=== PATIENT | male | born 1960 | race Caucasian/White ===

== ENCOUNTER 2017-04-16 22:41 | Emergency (ER) | payer MEDICAID ==
--- NOTE | 2017-04-16 23:39 | EDM.PDOC ---
ED HPI GENERAL MEDICAL PROBLEM - General Chief Complaint: Genitourinary Problem Stated Complaint: post op urinary retention Time Seen by Provider: 04/16/17 23:36 Source of Information: Reports: Patient History Limitations: Reports: No Limitations - History of Present Illness INITIAL COMMENTS - FREE TEXT/NARRATIVE: Pt. states that he had a LINX surgical procedure for hital hernia today at [facility] in [place], performed by Dr. Babar Diop. Pt. states that postoperatively he was unable to urinate and subsequently required catheterization to empty his bladder. Pt. states that there was difficulty placing the catheter, and a coude tipped catheter had to be utilized. Pt. states that this was performed at approx. 1700 this afternoon. He states since being home, he has been unable to void. He states that he has had problems with urinary retention in the past, and was previously on a daily medication for BPH. It is unknown if it was an alpha stefania or 5 alpha reductase inhibitor, but he states that the medication was not helpful and he subsequently stopped taking it. He states that since being home, he has been unable to void again. He has not been experiencing any fever or chills. His only complaint is that of lower abdominal pressure consistent with full bladder. Onset: Today Onset Date: 04/17/17 Onset Time: 00:03 - Related Data Allergies Allergy/AdvReac Type Severity Reaction Status Date / Time amoxicillin [From Augmentin] Allergy Other Verified 04/16/17 22:51 clavulanic acid Allergy Other Verified 04/16/17 22:51 [From Augmentin] ED ROS GENERAL - Review of Systems Review Of Systems: See Below Constitutional: Reports: No Symptoms HEENT: Reports: No Symptoms Respiratory: Reports: No Symptoms Cardiovascular: Reports: No Symptoms Endocrine: Reports: No Symptoms GI/Abdominal: Reports: No Symptoms : Reports: Urinary Retention Musculoskeletal: Reports: No Symptoms Skin: Reports: No Symptoms Neurological: Reports: No Symptoms Psychiatric: Reports: No Symptoms Hematologic/Lymphatic: Reports: No Symptoms Immunologic: Reports: No Symptoms ED EXAM, RENAL/ - Physical Exam Exam: See Below Exam Limited By: No Limitations General Appearance: Alert, WD/WN, No Apparent Distress Respiratory/Chest: No Respiratory Distress, Lungs Clear, Normal Breath Sounds, No Accessory Muscle Use, Chest Non-Tender Cardiovascular: Normal Peripheral Pulses, Regular Rate, Rhythm, No Edema, No Gallop, No JVD, No Murmur, No Rub GI/Abdominal: Normal Bowel Sounds, Soft, Non-Tender, No Organomegaly, No Distention, No Abnormal Bruit, No Mass, Pelvis Stable (Male) Exam: No Hernia, Normal Inspection, Circumcised, Other (difficulty passing catheter) Rectal (Males) Exam: BPH Back Exam: Normal Inspection, Full Range of Motion Extremities: Normal Inspection, Normal Range of Motion, Non-Tender, No Pedal Edema, Normal Capillary Refill Neurological: Alert, Oriented, CN II-XII Intact, Normal Cognition, Normal Gait, Normal Reflexes, No Motor/Sensory Deficits ED PROCEDURES - Additional/Other Procedure(s) Procedure(s) (Free Text): 16 fr. coude tipped catheter was placed with mild difficulty. Pt. had been bladder scanned for 565 ml of urine. Approx. 450ml was drained from his bladder. Pt. tolerated this well. leg bag was placed after initial drainage. Course - Orders/Labs/Meds Orders: Active Orders 24 hr Category Date Time Status Bladder Scan [RC] ONETIME Care 04/16/17 22:51 Active Departure - Departure Time of Disposition: 11:00 Disposition: Home, Self-Care 01 Clinical Impression: Urinary retention - Discharge Information Instructions: Acute Urinary Retention, Male, [id number] Referrals: Xin Irizarry MACHINE II CUTTER [Primary Care Provider] - Forms: ED Department Discharge Additional Instructions: Return to ER on Thursday to have catheter removed in ER. - My Orders Last 24 Hours: My Active Orders 04/16/17 22:51 Bladder Scan [RC] ONETIME - Assessment/Plan Last 24 Hours: My Active Orders 04/16/17 22:51 Bladder Scan [RC] ONETIME Assessment:: Acute on chronic urinary retention Plan: Return to ER on Thursday to have catheter removed. Keep collection bag and tubing below level of bladder so that urine doesn't return into bladder.
== END 2017-04-16 23:11 | disposition home or self-care (01) ==
LOC: VM.ED 22:41
DX: R33.9 Retention of urine, unspecified (principal); Z88.1 Allergy status to other antibiotic agents
CPT/HCPCS: 51702; 51798; 99284

== ENCOUNTER 2017-04-17 10:46 | Emergency (ER) | payer MEDICAID ==
[2017-04-17] MEDS ORDERED: Tamsulosin 0.4 MG Cap.ER PO ONE (11:35)
--- NOTE | 2017-04-18 06:07 | EDM.PDOC ---
ED HPI GENERAL MEDICAL PROBLEM - General Chief Complaint: Genitourinary Problem Stated Complaint: CATH TROUBLES Time Seen by Provider: 04/17/17 10:46 Source of Information: Reports: Patient History Limitations: Reports: No Limitations - History of Present Illness INITIAL COMMENTS - FREE TEXT/NARRATIVE: Pt. presents to ER with complaints of leaking from his ortiz catheter. Pt. was seen in the ER the previous night with post op urinary retention. Coude tip catheter was placed and a leg bag was utilized. Pt. noticed that the catheter wasn't draining and and it appeared that there was saline leaking for the area where water was injected into the catheter. Pt. presented to ER for evaluation. Onset: Today Treatments PREVENTATIVE MAINTENANCE TECHNICIAN: Reports: Urinary Catheter in Place - Related Data Allergies Allergy/AdvReac Type Severity Reaction Status Date / Time amoxicillin [From Augmentin] Allergy Other Verified 04/17/17 11:17 clavulanic acid Allergy Other Verified 04/17/17 11:17 [From Augmentin] Home Meds: Home Meds Acetaminophen/oxyCODONE [Percocet 325-5 MG] 1 - 2 tab PO Q4H PRN 04/17/17 [ History] Albuterol [Ventolin HFA] 2 puff .XX BID 04/17/17 [History] Albuterol/Ipratropium [DuoNeb 3.0-0.5 MG/3 ML] 1 dose .XX BID 04/17/17 [History] Ascorbate Calcium [Vitamin C] 500 mg PO DAILY 04/17/17 [History] Aspirin [Halfprin] 81 mg PO DAILY 04/17/17 [History] Calcium Carbonate [Tums] 500 mg PO TID 04/17/17 [History] Fluticasone/Salmeterol [Advair 100-50] 1 puff INH BID 04/17/17 [History] Ibuprofen 200 - 600 mg PO Q4H PRN 04/17/17 [History] Metoprolol Tartrate [Lopressor] 50 mg PO BID 04/17/17 [History] Multivitamin [Multivitamins] 1 each PO DAILY 04/17/17 [History] Pantoprazole [ProTONIX] 40 mg PO DAILY 04/17/17 [History] Past Medical History Cardiovascular History: Reports: Hypertension Respiratory History: Reports: Asthma Gastrointestinal History: Reports: GERD, Hiatal Hernia Genitourinary History: Reports: Prostate Disorder Oncologic (Cancer) History: Reports: Lung Social & Family History - Tobacco Use Smoking Status *Q: Unknown Ever Smoked ED ROS GENERAL - Review of Systems Review Of Systems: See Below : Reports: Urinary Retention, Other (ortiz catheter in place) ED EXAM, RENAL/ - Physical Exam Exam: See Below Exam Limited By: No Limitations General Appearance: Alert, WD/WN, No Apparent Distress (Male) Exam: No Hernia, Normal Inspection, Other (small hole noted in injection port of catheter. No saline in catheter. Catheter was subsequently removed.) Course - Vital Signs Last Recorded V/S: Last Vital Signs Temp 36.2 C 04/17/17 11:10 Pulse 69 04/17/17 11:10 Resp 18 04/17/17 11:10 BP 146/68 H 04/17/17 19:20 Pulse Ox 97 04/17/17 11:10 - Orders/Labs/Meds Orders: Active Orders 24 hr Category Date Time Status Remove Ortiz Catheter [Urinary Catheter Removal] [RC] Care 04/17/17 11:36 Active Per Unit Routine Meds: Medications Discontinued Medications Generic Name Dose Route Start Last Admin Trade Name Freq PRN Reason Stop Dose Admin Tamsulosin HCl 0.4 mg 04/17/17 11:35 04/17/17 11:46 Flomax PO 04/17/17 11:36 0.4 mg ONETIME ONE Administration Departure - Departure Time of Disposition: 11:48 Disposition: Home, Self-Care 01 Clinical Impression: Urinary retention - Discharge Information Referrals: Xin Irizarry NP [Primary Care Provider] - Forms: ED Department Discharge Additional Instructions: Return to the ER if you are unable to void. Start flomax 0.4mg once daily for urinary retention. Follow-up in clinic in 7-10 days for recheck. - My Orders Last 24 Hours: My Active Orders 04/17/17 11:36 Remove Ortiz Catheter [Urinary Catheter Removal] [RC] Per Unit Routine - Assessment/Plan Last 24 Hours: My Active Orders 04/17/17 11:36 Remove Ortiz Catheter [Urinary Catheter Removal] [RC] Per Unit Routine
== END 2017-04-17 11:48 | disposition home or self-care (01) ==
LOC: VM.ED 10:46
DX: R33.8 Other retention of urine (principal); T83.031A Leakage of indwelling urethral catheter, initial encounter; I10 Essential (primary) hypertension; J45.909 Unspecified asthma, uncomplicated; Z88.1 Allergy status to other antibiotic agents; Z79.82 Long term (current) use of aspirin; Z79.899 Other long term (current) drug therapy
CPT/HCPCS: 99283; A9270

== ENCOUNTER 2017-04-17 18:57 | Emergency (ER) | payer MEDICAID ==
[2017-04-17] MEDS ORDERED: Lidocaine 2% Jelly 10 ML Urojet MUCMEM ONE (18:59)
--- NOTE | 2017-04-17 20:25 | EDM.PDOC ---
ED HPI GENERAL MEDICAL PROBLEM - General Chief Complaint: Genitourinary Problem Time Seen by Provider: 04/17/17 18:57 Source of Information: Reports: Patient History Limitations: Reports: No Limitations - History of Present Illness INITIAL COMMENTS - FREE TEXT/NARRATIVE: Pt. presents to the ER with urinary retention. He was in ER earlier today with leaking ortiz catheter. This was removed and pt. did not want a replacement at that time to see if he could urinate which he was unable to do. He denies any fever or chills. No weakness or flank pain. No chest pain or shortness of breath. Onset: Today Groin Pain Score (Numeric/FACES): 7 - Related Data Allergies Allergy/AdvReac Type Severity Reaction Status Date / Time amoxicillin [From Augmentin] Allergy Other Verified 04/17/17 11:17 clavulanic acid Allergy Other Verified 04/17/17 11:17 [From Augmentin] Home Meds: Home Meds Acetaminophen/oxyCODONE [Percocet 325-5 MG] 1 - 2 tab PO Q4H PRN 04/17/17 [ History] Albuterol [Ventolin HFA] 2 puff .XX BID 04/17/17 [History] Albuterol/Ipratropium [DuoNeb 3.0-0.5 MG/3 ML] 1 dose .XX BID 04/17/17 [History] Ascorbate Calcium [Vitamin C] 500 mg PO DAILY 04/17/17 [History] Aspirin [Halfprin] 81 mg PO DAILY 04/17/17 [History] Calcium Carbonate [Tums] 500 mg PO TID 04/17/17 [History] Fluticasone/Salmeterol [Advair 100-50] 1 puff INH BID 04/17/17 [History] Ibuprofen 200 - 600 mg PO Q4H PRN 04/17/17 [History] Metoprolol Tartrate [Lopressor] 50 mg PO BID 04/17/17 [History] Multivitamin [Multivitamins] 1 each PO DAILY 04/17/17 [History] Pantoprazole [ProTONIX] 40 mg PO DAILY 04/17/17 [History] Past Medical History Cardiovascular History: Reports: Hypertension Respiratory History: Reports: Asthma Gastrointestinal History: Reports: GERD, Hiatal Hernia Genitourinary History: Reports: Prostate Disorder Oncologic (Cancer) History: Reports: Lung Social & Family History - Tobacco Use Smoking Status *Q: Unknown Ever Smoked ED ROS GENERAL - Review of Systems Review Of Systems: See Below Constitutional: Reports: No Symptoms Respiratory: Reports: No Symptoms Cardiovascular: Reports: No Symptoms Endocrine: Reports: No Symptoms GI/Abdominal: Reports: No Symptoms : Reports: Urinary Retention Musculoskeletal: Reports: No Symptoms Skin: Reports: No Symptoms ED EXAM, RENAL/ - Physical Exam Exam: See Below Exam Limited By: No Limitations General Appearance: Alert, WD/WN, No Apparent Distress Respiratory/Chest: No Respiratory Distress, Lungs Clear, Normal Breath Sounds, No Accessory Muscle Use, Chest Non-Tender Cardiovascular: Normal Peripheral Pulses, Regular Rate, Rhythm, No Edema, No Gallop, No JVD, No Murmur, No Rub GI/Abdominal: Normal Bowel Sounds, Soft, Non-Tender, No Organomegaly, No Distention, No Abnormal Bruit, No Mass (Male) Exam: No Hernia, Normal Inspection, Circumcised, Suprapubic Fullness Rectal (Males) Exam: BPH Skin Exam: Warm, Dry, Intact, Normal Color, No Rash ED PROCEDURES - Additional/Other Procedure(s) Procedure(s) (Free Text): 18 fr. coude catheter was placed. Urojet was placed prior to placement. Course - Vital Signs Last Recorded V/S: Last Vital Signs Temp 36.3 C 04/17/17 19:00 Pulse 78 04/17/17 19:00 Resp 16 04/17/17 19:00 BP 185/88 H 04/17/17 19:00 Pulse Ox - Orders/Labs/Meds Orders: Active Orders 24 hr Category Date Time Status Ortiz Catheter Insertion [Insert Urinary Catheter] [OM. Care 04/17/17 19:15 Ordered PC] Q24H Urinary Catheter Assessment [RC] ASDIRECTED Care 04/17/17 19:03 Active Meds: Medications Discontinued Medications Generic Name Dose Route Start Last Admin Trade Name Freq PRN Reason Stop Dose Admin Lidocaine HCl 10 ml 04/17/17 18:59 04/17/17 19:15 Xylocaine 2% Jelly MUCMEM 04/17/17 19:00 10 ml ONETIME ONE Administration Departure - Departure Time of Disposition: 19:34 Disposition: Home, Self-Care 01 Condition: Good Clinical Impression: Urinary retention - Discharge Information Instructions: Ortiz Catheter Care, Adult Referrals: Xin Irizarry, FIRST BREAKER FEEDER [Primary Care Provider] - Forms: ED Department Discharge Additional Instructions: Follow-up in clinic on Thursday for catheter removal. - My Orders Last 24 Hours: My Active Orders 04/17/17 19:03 Urinary Catheter Assessment [RC] ASDIRECTED 04/17/17 19:15 Ortiz Catheter Insertion [Insert Urinary Catheter] [OM.PC] Q24H - Assessment/Plan Last 24 Hours: My Active Orders 04/17/17 19:03 Urinary Catheter Assessment [RC] ASDIRECTED 04/17/17 19:15 Ortiz Catheter Insertion [Insert Urinary Catheter] [OM.PC] Q24H
== END 2017-04-17 19:34 | disposition home or self-care (01) ==
LOC: VM.ED 18:57
DX: R33.9 Retention of urine, unspecified (principal); J45.909 Unspecified asthma, uncomplicated; Z88.1 Allergy status to other antibiotic agents; Z79.82 Long term (current) use of aspirin; Z79.899 Other long term (current) drug therapy
CPT/HCPCS: 51702; 99283

== ENCOUNTER 2020-12-01 08:53 | Emergency (ER) | payer MEDICAID, OTHER ==
[2020-12-01] MEDS ORDERED: Lidocaine 1% 30 ML SDV INJECT ONE (09:08)
--- NOTE | 2020-12-01 10:24 | CR ---
[id number] RAD/RAD Fingers Right Exam: RAD Fingers Right Indication:SLAMMED ON DOOR,DEGLOVED FINGERNAIL. Comparison: No prior imaging for comparison. Discussion/Impression: No acute fracture or dislocation. Indio Barnes MD 12/01/20 1423 Thank you for allowing us to participate in the care of your patient.
--- NOTE | 2020-12-01 12:10 | EDM.PDOC ---
ED HPI GENERAL MEDICAL PROBLEM - General Chief Complaint: Upper Extremity Injury/Pain Stated Complaint: CUT RIGHT FINGER Time Seen by Provider: 12/01/20 09:05 Source of Information: Reports: Patient History Limitations: Reports: No Limitations - History of Present Illness INITIAL COMMENTS - FREE TEXT/NARRATIVE: Pt. states that he got his R middle finger caught in a bobcat door, avulsing the nail. Tetanus was updated in 2016. Denies any injury elsewhere. Pt. states that ROM of the distal and proximal finger joints as well as the MCP joint are within normal limits. Injury isolated to R middle finger. Onset: Today Onset Date: 12/01/20 Location: Reports: Upper Extremity, Right Quality: Reports: Sharp Severity: Moderate Treatments SUPERVISOR DIALS: Reports: Dressing(s) Left Middle Finger Pain Score (Numeric/FACES): 8 - Related Data Allergies Allergy/AdvReac Type Severity Reaction Status Date / Time amoxicillin [From Augmentin] Allergy Other Verified 12/01/20 09:09 clavulanic acid Allergy Other Verified 12/01/20 09:09 [From Augmentin] Home Meds: Home Meds Acetaminophen/oxyCODONE [Percocet 325-5 MG] 1 - 2 tab PO Q4H PRN 04/17/17 [History] Albuterol [Ventolin HFA] 2 puff .XX BID 04/17/17 [History] Albuterol/Ipratropium [DuoNeb 3.0-0.5 MG/3 ML] 1 dose .XX BID 04/17/17 [History] Ascorbate Calcium [Vitamin C] 500 mg PO DAILY 04/17/17 [History] Aspirin [Halfprin] 81 mg PO DAILY 04/17/17 [History] Calcium Carbonate [Tums] 500 mg PO TID 04/17/17 [History] Fluticasone/Salmeterol [Advair 100-50] 1 puff INH BID 04/17/17 [History] Ibuprofen 200 - 600 mg PO Q4H PRN 04/17/17 [History] Metoprolol Tartrate [Lopressor] 50 mg PO BID 04/17/17 [History] Multivitamin [Multivitamins] 1 each PO DAILY 04/17/17 [History] Pantoprazole [ProTONIX] 40 mg PO DAILY 04/17/17 [History] Past Medical History Cardiovascular History: Reports: Hypertension Respiratory History: Reports: Asthma Gastrointestinal History: Reports: GERD, Hiatal Hernia Genitourinary History: Reports: Prostate Disorder Oncologic (Cancer) History: Reports: Lung Social & Family History - Tobacco Use Tobacco Use Status *Q: Never Tobacco User - Recreational Drug Use Recreational Drug Use: No Review of Systems - Review of Systems Review Of Systems: Comprehensive ROS is negative, except as noted in HPI. ED EXAM, GENERAL - Physical Exam Exam: See Below Exam Limited By: No Limitations General Appearance: Alert, WD/WN, No Apparent Distress Extremities: Other (contusion to tip of R middle finger with avulsion of the nail. ROM to DIP and PIP are normal. No obvious edward deformity noted. CMS intact.) ED TRAUMA EXTREMITY PROCEDURES - Additional/Other Procedure(s) Other (Free Text) Procedure(s): A digital block utilizing approx. 4ml of 1% lidocaine was placed in base of R middle finger. Course - Vital Signs Last Recorded V/S: Last Vital Signs Temp 36.8 C 12/01/20 09:14 Pulse 74 12/01/20 09:14 Resp 14 12/01/20 09:14 BP 146/80 H 12/01/20 09:14 Pulse Ox 97 12/01/20 09:14 - Orders/Labs/Meds Meds: Medications Discontinued Medications Generic Name Dose Route Start Last Admin Trade Name Mary PRN Reason Stop Dose Admin Lidocaine HCl 30 ml 12/01/20 09:08 12/01/20 09:22 Lidocaine 1% 30 Ml Sdv INJECT 12/01/20 09:09 30 ml ONETIME ONE Administration Departure - Departure Time of Disposition: 10:00 Disposition: Home, Self-Care 01 Clinical Impression: Fingernail avulsion, complete - Discharge Information Instructions: Nail Avulsion, Acetaminophen; Codeine tablets Referrals: Xin Irizarry NP [Primary Care Provider] - Forms: ED Department Discharge Additional Instructions: Keep dressing on until Thursday. Then, change dressing once daily. You can probably just use an extra large bandaid at that time. Ibuprofen 200mg 2 tabs every 4-6 hours as needed for pain Tylenol #3 1 every 4-6 hours for pain that is not helped by ibuprofen. Use caution operating machinery when taking this medication. Sepsis Event Note (ED) - Evaluation Sepsis Screening Result: No Definite Risk - Focused Exam Vital Signs: Vital Signs Temp Pulse Resp BP Pulse Ox 12/01/20 09:14 36.8 C 74 14 146/80 H 97 - Problem List Review Problem List Initiated/Reviewed/Updated: Yes - Assessment/Plan Plan: Keep dressing on until Thursday. Then, change dressing once daily. You can probably just use an extra large bandaid at that time. Ibuprofen 200mg 2 tabs every 4-6 hours as needed for pain Tylenol #3 1 every 4-6 hours for pain that is not helped by ibuprofen. Use caution operating machinery when taking this medication.
== END 2020-12-01 09:44 | disposition home or self-care (01) ==
LOC: SUPCPDRO 08:53 → VM.ED 08:53
DX: S61.302A Unspecified open wound of right middle finger with damage to nail, initial encounter (principal); I10 Essential (primary) hypertension; J45.909 Unspecified asthma, uncomplicated; K21.9 Gastro-esophageal reflux disease without esophagitis; Z88.0 Allergy status to penicillin; Z88.1 Allergy status to other antibiotic agents; Z79.82 Long term (current) use of aspirin; Z79.899 Other long term (current) drug therapy; W23.0XXA Caught, crushed, jammed, or pinched between moving objects, initial encounter
CPT/HCPCS: 64450; 73140-F7; 99283-25